=== PATIENT | female | born 1990 | race Caucasian/White ===

== ENCOUNTER 2016-06-04 18:10 | Emergency (ER) | payer OTHER, BC ==
[~2016-06-04] VITALS: Ht 157.4 cm; Wt 65.8 kg
[~2016-06-04 18:10] MED LIST: AMOXICILLIN500 M3 PO; BACTRIM DS 8001 TA1 PO; CETACAINE T; IBU800 M1 PO; PREDNISONE20 M1 PO; ZITHROMAX250 MG PO
[2016-06-04 18:37] LABS: BASO % 0.3 % (0.0-1.0); EOS # 0.1 10*3/uL (0.0-0.4); EOS % 0.5 % (1.0-4.0); HEMATOCRIT 45.2 % (37.0-47.0); HEMOGLOBIN 15.9 g/dl (12.0-16.0); IG # 0.1 10*3/uL (0.0-0.1); LYMPH # 2.6 10*3/uL (1.3-4.4); LYMPH % 17.1 % (27.0-41.0); MEAN CELL VOLUME 87.6 fl (81.0-99.0); MEAN CORPUSCULAR HGB 30.8 pg (27.0-31.0); MEAN CORPUSCULAR HGB CONC 35.2 g/dl (33.0-37.0); MEAN PLATELET VOLUME 9.1 fl (9.6-12.3); MONO # 0.7 10*3/uL (0.1-1.0); MONO % 4.5 % (3.0-9.0); NEUT # 11.9 10*3/uL (2.3-7.9); NEUT % 77.1 % (47.0-73.0); PLATELET COUNT AUTOMATED 276 10*3/uL (130-400); RED BLOOD COUNT 5.16 10*6/uL (4.10-5.10); WHITE BLOOD COUNT 15.4 10*3/uL (4.8-10.8)
[2016-06-04 18:59] LABS: ALBUMIN 4.4 gm/dl (3.1-4.5); ALKALINE PHOSPHATASE 75 U/L (45-117); BILIRUBIN, TOTAL 0.5 mg/dl (0.2-1.0); BUN 11 mg/dl (7-24); CARBON DIOXIDE 26 mmol/L (21-32); CHLORIDE 101 mmol/L (98-107); EST GLOM FILT AFRICAN AMERICAN > 60 ml/min; GLUCOSE 102 mg/dL (65-99); POTASSIUM 3.8 mmol/L (3.5-5.1); SGOT/AST 18 IU/L (3-35); SGPT/ALT 26 U/L (12-78); SODIUM 139 mmol/L (136-145); TOTAL PROTEIN 7.8 gm/dL (6.4-8.2)
[2016-06-04 19:09] LABS: TROPONIN I < 0.015 ng/ml (<0.045)
[2016-06-04] MEDS ORDERED: BLEPH-10 15 ML15 ML OPH (21:05)
== END 2016-06-04 21:33 | disposition home or self-care (01) ==
LOC: ED 18:10
PROVIDERS: Emergency Medicine
DX: S05.02XA Injury of conjunctiva and corneal abrasion without foreign body, left eye, initial encounter (principal); V89.2XXA Person injured in unspecified motor-vehicle accident, traffic, initial encounter; Y93.89 Activity, other specified; Y92.413 State road as the place of occurrence of the external cause; Y99.9 Unspecified external cause status

== ENCOUNTER 2016-12-09 17:08 | Emergency (ER) | payer BC ==
[~2016-12-09] VITALS: Ht 157.4 cm; Wt 71.7 kg
[~2016-12-09 17:08] MED LIST changes: +BLEPH-10 15 ML15 ML OPH
[2016-12-09] MEDS ORDERED: PENICILLIN VK500 MG PO (17:35)
[2016-12-09] MEDS ORDERED: Peridex 473 ML473 ML PO (17:35)
[2016-12-09] MEDS ORDERED: NAPROSYN500 MG PO (17:35)
== END 2016-12-09 22:22 | disposition home or self-care (01) ==
LOC: ED 17:08
DX: K02.9 Dental caries, unspecified (principal); F17.200 Nicotine dependence, unspecified, uncomplicated

== ENCOUNTER 2016-12-24 22:51 | Emergency (ER) | payer BC ==
[~2016-12-24] VITALS: Ht 157.4 cm; Wt 83.9 kg
[~2016-12-24 22:51] MED LIST changes: +NAPROSYN500 MG PO; +PENICILLIN VK500 MG PO; +Peridex 473 ML473 ML PO
[2016-12-24] MEDS ORDERED: CEPHALEXIN500 M1 PO (23:27)
== END 2016-12-24 23:38 | disposition home or self-care (01) ==
LOC: ED 22:51
DX: S80.811A Abrasion, right lower leg, initial encounter (principal); L03.115 Cellulitis of right lower limb; F17.200 Nicotine dependence, unspecified, uncomplicated; X58.XXXA Exposure to other specified factors, initial encounter; Y93.89 Activity, other specified; Y92.89 Other specified places as the place of occurrence of the external cause; Y99.9 Unspecified external cause status

== ENCOUNTER → 2016-12-25 | Outpatient (CLI) | payer BC ==
[~2016-12-25] MED LIST changes: +CEPHALEXIN500 M1 PO
== END | disposition home or self-care (01) ==
LOC: US 08:38
DX: M79.604 Pain in right leg (principal); R60.0 Localized edema

== ENCOUNTER 2017-05-05 16:44 | Emergency (ER) | payer BC ==
[~2017-05-05] VITALS: Ht 157.4 cm; Wt 83.9 kg
[2017-05-05 17:35] LABS: BASO % 0.2 % (0.0-1.0); HEMATOCRIT 45.4 % (37.0-47.0); LYMPH # 1.1 10*3/uL (1.3-4.4); LYMPH % 8.6 % (27.0-41.0); MEAN CELL VOLUME 85.5 fl (81.0-99.0); MEAN CORPUSCULAR HGB 30.1 pg (27.0-31.0); MEAN CORPUSCULAR HGB CONC 35.2 g/dl (33.0-37.0); MEAN PLATELET VOLUME 9.4 fl (9.6-12.3); MONO # 0.3 10*3/uL (0.1-1.0); NEUT # 11.5 10*3/uL (2.3-7.9); NEUT % 88.9 % (47.0-73.0); PLATELET COUNT AUTOMATED 251 10*3/uL (130-400); RED BLOOD COUNT 5.31 10*6/uL (4.10-5.10); RED CELL DISTRI WIDTH 12.4 % (0-14.5)
[2017-05-05 17:50] LABS: ALBUMIN 4.1 gm/dl (3.1-4.5); ALKALINE PHOSPHATASE 86 U/L (45-117); BUN 13 mg/dl (7-24); CHLORIDE 106 mmol/L (98-107); CREATININE 0.91 mg/dL (0.55-1.02); LIPASE 103 U/L (73-393); POTASSIUM 3.7 mmol/L (3.5-5.1); SGOT/AST 12 IU/L (3-35); SGPT/ALT 19 U/L (12-78); SODIUM 142 mmol/L (136-145)
[2017-05-05 18:15] LABS: BILIRUBIN 1+ (NEGATIVE); BLOOD NEGATIVE (NEGATIVE); CLARITY CLOUDY (CLEAR); COLOR YELLOW (YELLOW); GLUCOSE NEGATIVE (NEGATIVE); KETONE 2+ (NEGATIVE); LEUKO ESTERASE NEGATIVE (NEGATIVE); NITRITE NEGATIVE (NEGATIVE); SPECIFIC GRAVITY >= 1.030 (1.005-1.030); UROBILINOGEN 0.2 E.U./dl (0.2-1.0)
[2017-05-05 18:26] LABS: BACTERIA 1+; MUCOUS 2+
[2017-05-05] MEDS ORDERED: ZOFRAN ODT4 MG SL (21:01)
== END 2017-05-05 21:08 | disposition home or self-care (01) ==
LOC: ED 16:44
PROVIDERS: Physician Assistant
DX: A08.4 Viral intestinal infection, unspecified (principal); R11.2 Nausea with vomiting, unspecified; R10.13 Epigastric pain; F17.200 Nicotine dependence, unspecified, uncomplicated; Z79.899 Other long term (current) drug therapy

== ENCOUNTER 2017-07-13 19:55 | Emergency (ER) | payer BC ==
[~2017-07-13] VITALS: Ht 157.4 cm; Wt 83.9 kg
[~2017-07-13 19:55] MED LIST changes: +ZOFRAN ODT4 MG SL
[2017-07-13] MEDS ORDERED: AMOXICILLIN500 M2 PO (20:19)
== END 2017-07-13 20:38 | disposition home or self-care (01) ==
LOC: ED 19:55
DX: K08.89 Other specified disorders of teeth and supporting structures (principal); Z79.899 Other long term (current) drug therapy

== ENCOUNTER 2017-12-21 09:41 | Emergency (ER) | payer OTHER ==
[~2017-12-21] VITALS: Wt 83.9 kg
[~2017-12-21 09:41] MED LIST changes: +AMOXICILLIN500 M2 PO; +MACROBID100 M1 PO
[2017-12-21 09:57] LABS: BASO % 0.2 % (0.0-1.0); EOS # 0.1 10*3/uL (0.0-0.4); EOS % 1.2 % (1.0-4.0); HEMOGLOBIN 15.9 g/dl (12.0-16.0); LYMPH % 18.1 % (27.0-41.0); MEAN CORPUSCULAR HGB 30.4 pg (27.0-31.0); MEAN CORPUSCULAR HGB CONC 34.6 g/dl (33.0-37.0); MEAN PLATELET VOLUME 9.2 fl (9.6-12.3); MONO # 0.5 10*3/uL (0.1-1.0); MONO % 4.9 % (3.0-9.0); NEUT # 8.2 10*3/uL (2.3-7.9); NEUT % 75.2 % (47.0-73.0); PLATELET COUNT AUTOMATED 198 10*3/uL (130-400); RED BLOOD COUNT 5.23 10*6/uL (4.10-5.10); RED CELL DISTRI WIDTH 12.3 % (0-14.5); WHITE BLOOD COUNT 10.9 10*3/uL (4.8-10.8)
[2017-12-21 10:17] LABS: ALBUMIN 3.9 gm/dl (3.1-4.5); ALKALINE PHOSPHATASE 87 U/L (45-117); BUN 13 mg/dl (7-24); CHLORIDE 110 mmol/L (98-107); CREATININE 0.96 mg/dL (0.55-1.02); LIPASE 132 U/L (73-393); POTASSIUM 3.8 mmol/L (3.5-5.1); SGOT/AST 13 IU/L (3-35); SGPT/ALT 20 U/L (12-78); SODIUM 142 mmol/L (136-145); TOTAL PROTEIN 7.3 gm/dL (6.4-8.2)
[2017-12-21 10:57] LABS: CLARITY SL CLOUDY (CLEAR); COLOR YELLOW (YELLOW)
[2017-12-21 10:58] LABS: BILIRUBIN NEGATIVE (NEGATIVE); BLOOD NEGATIVE (NEGATIVE); GLUCOSE NEGATIVE (NEGATIVE); KETONE NEGATIVE (NEGATIVE); LEUKO ESTERASE NEGATIVE (NEGATIVE); NITRITE NEGATIVE (NEGATIVE); UROBILINOGEN 0.2 E.U./dl (0.2-1.0)
[2017-12-21 11:11] LABS: BACTERIA 1+; MUCOUS 2+; RBC 0-2 rbc/hpf (0-2)
[2017-12-21] MEDS ORDERED: ZOFRAN ODT4 MG SL (11:27)
[2017-12-29] MEDS ORDERED: PROTONIX40 M1 PO (17:41)
== END 2017-12-21 11:29 | disposition home or self-care (01) ==
LOC: ED 09:41
PROVIDERS: Emergency Medicine
DX: K52.9 Noninfective gastroenteritis and colitis, unspecified (principal); R11.2 Nausea with vomiting, unspecified; E66.9 Obesity, unspecified; F17.200 Nicotine dependence, unspecified, uncomplicated

== ENCOUNTER 2018-10-12 05:34 | Emergency (ER) | payer SELFPAY ==
[~2018-10-12] VITALS: Ht 165.1 cm; Wt 99.8 kg
[~2018-10-12 05:34] MED LIST changes: +DIFLUCAN150 MG PO; +IBU800 MG PO; +PROTONIX40 M1 PO
[2018-10-12] MEDS ORDERED: TYLENOL325 M1 PO (08:04)
[2018-10-12] MEDS ORDERED: ZOFRAN4 MG PO (08:04)
[2018-11-06] MEDS ORDERED: CLINDAMYCIN HC300 MG PO (18:29)
[2018-11-06] MEDS ORDERED: Motrin,Rufen800 MG PO (18:29)
== END 2018-10-12 08:20 | disposition home or self-care (01) ==
LOC: ED 05:34
DX: S06.0X0A Concussion without loss of consciousness, initial encounter (principal); S00.83XA Contusion of other part of head, initial encounter; R11.2 Nausea with vomiting, unspecified; Y08.89XA Assault by other specified means, initial encounter; Y93.89 Activity, other specified; Y92.098 Other place in other non-institutional residence as the place of occurrence of the external cause; Y99.8 Other external cause status

== ENCOUNTER 2018-12-03 01:56 | Emergency (ER) | payer SELFPAY ==
[~2018-12-03] VITALS: Ht 157.4 cm; Wt 81.6 kg
[~2018-12-03 01:56] MED LIST changes: +CLINDAMYCIN HC300 MG PO; +Motrin,Rufen800 MG PO; +TYLENOL325 M1 PO; +ZOFRAN4 MG PO
[2018-12-03] MEDS ORDERED: CLINDAMYCIN HC300 MG PO (03:05)
[2018-12-03] MEDS ORDERED: Motrin,Rufen800 MG PO (03:06)
== END 2018-12-03 03:37 | disposition home or self-care (01) ==
LOC: ED 01:56
DX: K02.9 Dental caries, unspecified (principal); K04.01 Reversible pulpitis; Z79.899 Other long term (current) drug therapy; Z79.2 Long term (current) use of antibiotics

== ENCOUNTER 2018-12-03 22:50 | Inpatient (IN) | payer SELFPAY ==
[~2018-12-03] VITALS: Ht 157.4 cm; Wt 88.7 kg
--- NOTE | ~2018-12-03 | WRIGHTHP ---
[place], [place] PATIENT HISTORY AND PHYSICAL EXAM NAME: CHARLA BECKER [facility] #: [id number] UNIT #: [id number] ROOM: [id number] DOCTOR: ROXI DIA MD BIRTHDATE: [birth year] DOS: 12/04/2018 HISTORY OF PRESENT ILLNESS: The patient is 27 years old. The patient had multiple visits to the ER with tooth problems. She came into the Emergency Room on 12/03/2018, was discharged on some pain medicines and then clindamycin, went home. Her mouth and her cheek and eye got increasingly swollen, she came back again. She has been admitted, but with some sitting in the holding area for more than 24 hours, she was just brought to the floor this morning at 9:00. She denies having any chest pains or palpitations, does not have any fever or chills. Had a root canal performed about 8 months ago by the dental clinic in [place]. She was eating a hard candy and the filling fell out and left with a gaping hole. The patient says that then she got an infection in there and it continued to get worse. She does not have any complaints of fever, does not have any abdominal pain, nausea, emesis. Does not have any chest pains or shortness of breath. Has significant pain in the right side of the face and wants to have more pain medications. PAST MEDICAL HISTORY: None significant except for the chronic tooth problems. SOCIAL HISTORY: Smoker of about half pack of cigarettes. Does not use any alcohol. 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 PHYSICAL EXAMINATION: GENERAL: She is awake and alert and oriented. VITAL SIGNS: Blood pressure is 131/85, pulse of 86, respirations 18, temperature 99.5. LUNGS: Diminished breath sounds. Clear. HEART: Regular. ABDOMEN: Obese. EXTREMITIES: Without any edema. SKIN: Right side of the face and eyes swollen and pretty tender to touch. LABORATORY DATA: White cell count is 12.3. Comprehensive within normal limits. ESR and CRP are normal. Maxillofacial CAT scan showed fluid collection in the right side of the maxilla arising in the right second upper molar with surrounding soft tissue swelling, erosion of the premolar. ASSESSMENT AND PLAN: Dental abscess with facial edema. The patient is placed on intravenous vancomycin and Zosyn, intravenous fluids and consultation with Dr. Edouard. Demerol for pain control. Right now, the patient will stay n.p.o. until seen by Dr. Nunn for possible procedures. [place], [place] PATIENT HISTORY AND PHYSICAL EXAM NAME: CHARLA BECKER UNIT #: [id number] ROOM: [facility] DOCTOR: ROXI DIA MD BIRTHDATE: [birth year] ROXI DIA MD CM:HISPHYS:PATIENT HISTORY AND PHYSICAL EXAMINATION 3 ROXI DIA MD 12/04/18 0945 interface
[2018-12-03 22:51] VITALS: BP 131/78
[2018-12-03 23:22] LABS: BASO % 0.2 % (0.0-1.0); EOS # 0.2 10*3/uL (0.0-0.4); EOS % 1.3 % (1.0-4.0); HEMOGLOBIN 13.5 g/dl (12.0-16.0); LYMPH # 2.1 10*3/uL (1.3-4.4); LYMPH % 17.2 % (27.0-41.0); MEAN CELL VOLUME 91.5 fl (81.0-99.0); MEAN CORPUSCULAR HGB 30.9 pg (27.0-31.0); MEAN CORPUSCULAR HGB CONC 33.8 g/dl (33.0-37.0); MEAN PLATELET VOLUME 9.6 fl (9.6-12.3); MONO # 0.9 10*3/uL (0.1-1.0); MONO % 7.2 % (3.0-9.0); NEUT # 9.1 10*3/uL (2.3-7.9); NEUT % 73.6 % (47.0-73.0); PLATELET COUNT AUTOMATED 205 10*3/uL (130-400); RED BLOOD COUNT 4.37 10*6/uL (4.10-5.10); RED CELL DISTRI WIDTH 12.8 % (0-14.5); WHITE BLOOD COUNT 12.3 10*3/uL (4.8-10.8)
[2018-12-03 23:38] LABS: ALBUMIN 3.6 gm/dl (3.1-4.5); ALKALINE PHOSPHATASE 79 U/L (45-117); BUN 9 mg/dl (7-24); CHLORIDE 109 mmol/L (98-107); CREATININE 0.77 mg/dL (0.55-1.02); POTASSIUM 3.8 mmol/L (3.5-5.1); SGOT/AST 9 IU/L (3-35); SGPT/ALT 22 U/L (12-78); SODIUM 138 mmol/L (136-145); TOTAL PROTEIN 6.8 gm/dL (6.4-8.2)
--- NOTE | 2018-12-04 03:29 | NUR ---
PATIENT RESTING QUIETLY IN BED AT THIS TIME. RESPIRATIONS EASY, NON-LABORED ON ROOM AIR. NO DISTRESS NOTED. CALL LIGHT WITHIN REACH. RN WILL CONTINUE TO MONITOR.
[2018-12-04 07:23] VITALS: BP 129/90
--- NOTE | 2018-12-04 07:24 | NUR ---
REPORT RECIEVED AT 0710 FROM CHRIS MACK. AWAKE AND ALERT. PT REPORTS HER PAIN TO BE A 8-9/10. LARGE EDEMA NOTED ON RIGHT SIDE OF FACE AND RIGHT ORBITAL AREA. COLOR IS PINK. SKIN IS WARM AND DRY. RESPIRATIONS ARE NON LABORED. PULSE OX AT 99%
[2018-12-04 08:00] VITALS: BP 131/85
--- NOTE | 2018-12-04 08:30 | NUR ---
Time: 829 A 27 year old FEMALE admitted to under services of ROXI PALACIOS MD. Pt. arrived via bed from ER. Chief complaint: RIGHT SIDED FACIAL SWELLING, DENTAL ABSCESS. SALVADOR DE
--- NOTE | 2018-12-04 10:07 | NUR ---
PTS MOTHER TO THE DESK AND WANTS PATIENT DISCHARGED. DR. DIA NOTIFIED AND GAVE ORDER. HEPLOCK DISCONTINUED. PT DENIED NEED FOR WHEELCHAIR AND AMBULATED OFF THE FLOOR.
== END 2018-12-04 10:07 | disposition home or self-care (01) | DRG 159 ==
LOC: ED 22:50 → EDHOLD 12-04 01:21 → 4E 12-04 07:34
PROVIDERS: Nurse Practitioner Family; ADMIT Internal Medicine
DX: K04.7 Periapical abscess without sinus (principal); F17.210 Nicotine dependence, cigarettes, uncomplicated

== ENCOUNTER 2019-04-08 22:13 | Emergency (ER) | payer SELFPAY ==
[~2019-04-08] VITALS: Wt 70.3 kg
[2019-04-08 22:59] LABS: BASO % 0.4 % (0.0-1.0); EOS # 0.2 10*3/uL (0.0-0.4); EOS % 1.4 % (1.0-4.0); HEMATOCRIT 40.4 % (37.0-47.0); HEMOGLOBIN 13.4 g/dl (12.0-16.0); LYMPH # 2.5 10*3/uL (1.3-4.4); LYMPH % 23.7 % (27.0-41.0); MEAN CELL VOLUME 89.4 fl (81.0-99.0); MEAN CORPUSCULAR HGB 29.6 pg (27.0-31.0); MEAN CORPUSCULAR HGB CONC 33.2 g/dl (33.0-37.0); MEAN PLATELET VOLUME 9.3 fl (9.6-12.3); MONO # 0.6 10*3/uL (0.1-1.0); MONO % 5.9 % (3.0-9.0); NEUT # 7.2 10*3/uL (2.3-7.9); NEUT % 68.2 % (47.0-73.0); PLATELET COUNT AUTOMATED 231 10*3/uL (130-400); RED BLOOD COUNT 4.52 10*6/uL (4.10-5.10); RED CELL DISTRI WIDTH 12.5 % (0-14.5); WHITE BLOOD COUNT 10.5 10*3/uL (4.8-10.8)
[2019-04-08 23:14] LABS: ALBUMIN 3.7 gm/dl (3.1-4.5); ALKALINE PHOSPHATASE 76 U/L (45-117); BUN 16 mg/dl (7-24); CHLORIDE 113 mmol/L (98-107); CREATININE 0.84 mg/dL (0.55-1.02); POTASSIUM 3.8 mmol/L (3.5-5.1); SGOT/AST 5 IU/L (3-35); SGPT/ALT 19 U/L (12-78); SODIUM 141 mmol/L (136-145); TOTAL PROTEIN 7.1 gm/dL (6.4-8.2)
[2019-04-08 23:45] LABS: BILIRUBIN NEGATIVE (NEGATIVE); BLOOD NEGATIVE (NEGATIVE); CLARITY CLEAR (CLEAR); COLOR YELLOW (YELLOW); GLUCOSE NEGATIVE (NEGATIVE); KETONE NEGATIVE (NEGATIVE); LEUKO ESTERASE TRACE (NEGATIVE); NITRITE NEGATIVE (NEGATIVE); PH 5.5 (5.0-9.0); SPECIFIC GRAVITY >= 1.030 (1.005-1.030); UROBILINOGEN 0.2 E.U./dl (0.2-1.0)
[2019-04-09 00:04] LABS: BACTERIA 1+
== END 2019-04-09 08:18 | disposition short-term general hospital (02) ==
LOC: ED 22:13
PROVIDERS: Emergency Medicine
DX: N76.4 Abscess of vulva (principal); L73.9 Follicular disorder, unspecified; Z20.2 Contact with and (suspected) exposure to infections with a predominantly sexual mode of transmission

== ENCOUNTER 2019-06-25 19:50 | Inpatient (IN) | payer OTHER ==
[~2019-06-25] VITALS: Ht 157.4 cm; Wt 83.2 kg
[2019-06-25 20:02] VITALS: BP 144/83
[2019-06-25] MEDS ORDERED: VALTREX1000 MG (20:38)
[2019-06-25 20:41] LABS: BASO % 0.2 % (0.0-1.0); HEMATOCRIT 48.6 % (37.0-47.0); HEMOGLOBIN 17.1 g/dl (12.0-16.0); LYMPH # 1.4 10*3/uL (1.3-4.4); LYMPH % 7.8 % (27.0-41.0); MEAN CELL VOLUME 85.6 fl (81.0-99.0); MEAN CORPUSCULAR HGB 30.1 pg (27.0-31.0); MEAN CORPUSCULAR HGB CONC 35.2 g/dl (33.0-37.0); MEAN PLATELET VOLUME 9.6 fl (9.6-12.3); MONO # 0.5 10*3/uL (0.1-1.0); MONO % 2.9 % (3.0-9.0); NEUT # 16.3 10*3/uL (2.3-7.9); NEUT % 88.7 % (47.0-73.0); PLATELET COUNT AUTOMATED 312 10*3/uL (130-400); RED BLOOD COUNT 5.68 10*6/uL (4.10-5.10); RED CELL DISTRI WIDTH 12.6 % (0-14.5); WHITE BLOOD COUNT 18.4 10*3/uL (4.8-10.8)
[2019-06-25 20:58] LABS: ALBUMIN 4.6 gm/dl (3.1-4.5); ALKALINE PHOSPHATASE 92 U/L (45-117); BUN 19 mg/dl (7-24); CHLORIDE 101 mmol/L (98-107); CREATININE 1.13 mg/dL (0.55-1.02); POTASSIUM 3.1 mmol/L (3.5-5.1); SGOT/AST 11 IU/L (3-35); SGPT/ALT 19 U/L (12-78); SODIUM 135 mmol/L (136-145); TOTAL PROTEIN 9.2 gm/dL (6.4-8.2)
[2019-06-25 20:59] LABS: LIPASE 49 U/L (73-393)
[2019-06-25 21:02] LABS: BETA-HCG, QUANT < 1.0 mIU/mL (1-3)
[2019-06-25 21:37] LABS: BILIRUBIN 1+ (NEGATIVE); BLOOD TRACE-INTACT (NEGATIVE); CLARITY SL CLOUDY (CLEAR); COLOR YELLOW (YELLOW); GLUCOSE NEGATIVE (NEGATIVE); KETONE 2+ (NEGATIVE); LEUKO ESTERASE NEGATIVE (NEGATIVE); NITRITE NEGATIVE (NEGATIVE); UROBILINOGEN 0.2 E.U./dl (0.2-1.0)
[2019-06-25 21:38] LABS: BACTERIA 1+; EPITHELIAL CELLS TNTC; HYALINE CAST TNTC; WBC 0-2 wbc/hpf (0-5)
[2019-06-25 21:39] LABS: MUCOUS 3+
[2019-06-25 23:47] VITALS: BP 110/64
[2019-06-26] VITALS (11 sets, daily range): BP systolic 87–144; BP diastolic 37–98
[2019-06-26 05:48] LABS: BUN 14 mg/dl (7-24); CHLORIDE 103 mmol/L (98-107); CREATININE 0.75 mg/dL (0.55-1.02); POTASSIUM 2.9 mmol/L (3.5-5.1); SODIUM 137 mmol/L (136-145)
[2019-06-26 06:20] LABS: BASO % 0.2 % (0.0-1.0); EOS % 0.1 % (1.0-4.0); HEMATOCRIT 41.4 % (37.0-47.0); HEMOGLOBIN 14.3 g/dl (12.0-16.0); LYMPH # 2.6 10*3/uL (1.3-4.4); LYMPH % 15.9 % (27.0-41.0); MEAN CELL VOLUME 86.8 fl (81.0-99.0); MEAN CORPUSCULAR HGB CONC 34.5 g/dl (33.0-37.0); MEAN PLATELET VOLUME 10.2 fl (9.6-12.3); MONO # 1.2 10*3/uL (0.1-1.0); MONO % 7.3 % (3.0-9.0); NEUT # 12.4 10*3/uL (2.3-7.9); PLATELET COUNT AUTOMATED 281 10*3/uL (130-400); RED BLOOD COUNT 4.77 10*6/uL (4.10-5.10); RED CELL DISTRI WIDTH 12.4 % (0-14.5); WHITE BLOOD COUNT 16.3 10*3/uL (4.8-10.8)
[2019-06-26] MEDS ORDERED: ZOFRAN4 MG PO (14:25)
== END 2019-06-26 23:58 | disposition home or self-care (01) | DRG 710 ==
LOC: ED 19:50 → EDHOLD 06-26 01:37 → 4E 06-26 01:37
PROVIDERS: Family Medicine; Internal Medicine; ADMIT Internal Medicine
PROC: 0DTJ4ZZ Resection of Appendix, Percutaneous Endoscopic Approach (ICD-10-PCS; principal; 2019-06-26)
DX: A41.9 Sepsis, unspecified organism (principal); K35.80 Unspecified acute appendicitis; N17.0 Acute kidney failure with tubular necrosis; E87.1 Hypo-osmolality and hyponatremia; E87.6 Hypokalemia; R65.20 Severe sepsis without septic shock; Z79.899 Other long term (current) drug therapy; Z83.79 Family history of other diseases of the digestive system

== ENCOUNTER 2019-08-10 21:45 | Emergency (ER) | payer OTHER ==
[~2019-08-10] VITALS: Ht 157.4 cm; Wt 81.6 kg
[~2019-08-10 21:45] MED LIST changes: +VALTREX1000 MG
== END 2019-08-10 23:20 | disposition home or self-care (01) ==
LOC: ED 21:45
DX: G56.00 Carpal tunnel syndrome, unspecified upper limb (principal); Z79.899 Other long term (current) drug therapy

== ENCOUNTER 2019-10-21 17:25 | Inpatient (IN) | payer OTHER ==
[~2019-10-21] VITALS: Ht 157.5 cm; Wt 83.9 kg
[2019-10-21 17:32] VITALS: BP 136/103
[2019-10-21 17:45] VITALS: BP 130/86
[2019-10-21 17:53] LABS: BILIRUBIN 1+ (NEGATIVE); BLOOD 3+ (NEGATIVE); CLARITY CLOUDY (CLEAR); COLOR STRAW (YELLOW); GLUCOSE NEGATIVE (NEGATIVE); KETONE 3+ (NEGATIVE); LEUKO ESTERASE NEGATIVE (NEGATIVE); NITRITE NEGATIVE (NEGATIVE); UROBILINOGEN 0.2 E.U./dl (0.2-1.0)
[2019-10-21 17:59] LABS: RBC 0-2 rbc/hpf (0-2)
[2019-10-21 18:00] LABS: BACTERIA 1+; MUCOUS 1+
[2019-10-21 18:02] LABS: URINE AMPHETAMINES > 1000 (1000ng/ml); URINE BARBITURATES < 200 (200ng/ml); URINE BENZODIAZEPINES > 200 (200ng/ml); URINE CANNABINOIDS (THC) > 50 (50ng/ml); URINE COCAINE < 300 (300ng/ml); URINE METHADONE < 300 (300ng/ml); URINE OPIATES < 300 (300ng/ml); URINE PHENCYCLIDINE < 25 (25ng/ml)
[2019-10-21 18:02] LABS: BASO # 0.1 10*3/uL (0.0-0.1); BASO % 0.2 % (0.0-1.0); EOS % 0.2 % (1.0-4.0); HEMATOCRIT 51.7 % (37.0-47.0); LYMPH # 1.3 10*3/uL (1.3-4.4); LYMPH % 6.7 % (27.0-41.0); MEAN CELL VOLUME 87.3 fl (81.0-99.0); MEAN CORPUSCULAR HGB 30.2 pg (27.0-31.0); MEAN CORPUSCULAR HGB CONC 34.6 g/dl (33.0-37.0); MEAN PLATELET VOLUME 9.5 fl (9.6-12.3); MONO # 0.7 10*3/uL (0.1-1.0); MONO % 3.3 % (3.0-9.0); NEUT # 17.9 10*3/uL (2.3-7.9); NEUT % 89.2 % (47.0-73.0); PLATELET COUNT AUTOMATED 333 10*3/uL (130-400); RED BLOOD COUNT 5.92 10*6/uL (4.10-5.10); RED CELL DISTRI WIDTH 12.5 % (0-14.5); WHITE BLOOD COUNT 20.1 10*3/uL (4.8-10.8)
[2019-10-21 18:17] LABS: ALBUMIN 4.8 gm/dl (3.1-4.5); ALKALINE PHOSPHATASE 100 U/L (45-117); BUN 12 mg/dl (7-24); CHLORIDE 104 mmol/L (98-107); CREATININE 0.97 mg/dL (0.55-1.02); POTASSIUM 3.9 mmol/L (3.5-5.1); SGOT/AST 19 IU/L (3-35); SGPT/ALT 40 U/L (12-78); SODIUM 138 mmol/L (136-145); TOTAL PROTEIN 9.3 gm/dL (6.4-8.2)
[2019-10-21 20:11] VITALS: BP 126/83
[2019-10-21 21:20] VITALS: BP 124/75
[2019-10-22] VITALS: BP 129/78
[2019-10-22 06:27] LABS: HEMATOCRIT 46.5 % (37.0-47.0); MEAN CELL VOLUME 89.1 fl (81.0-99.0); MEAN CORPUSCULAR HGB 30.5 pg (27.0-31.0); MEAN CORPUSCULAR HGB CONC 34.2 g/dl (33.0-37.0); MEAN PLATELET VOLUME 9.6 fl (9.6-12.3); PLATELET COUNT AUTOMATED 293 10*3/uL (130-400); RED BLOOD COUNT 5.22 10*6/uL (4.10-5.10); RED CELL DISTRI WIDTH 12.7 % (0-14.5); WHITE BLOOD COUNT 16.3 10*3/uL (4.8-10.8)
[2019-10-22 06:57] LABS: ALBUMIN 4.3 gm/dl (3.1-4.5); ALKALINE PHOSPHATASE 85 U/L (45-117); BUN 12 mg/dl (7-24); CHLORIDE 105 mmol/L (98-107); CREATININE 0.85 mg/dL (0.55-1.02); HDL CHOLESTEROL 50 mg/dl (40-60); POTASSIUM 3.5 mmol/L (3.5-5.1); SGOT/AST 10 IU/L (3-35); SGPT/ALT 33 U/L (12-78); SODIUM 138 mmol/L (136-145); TOTAL PROTEIN 8.5 gm/dL (6.4-8.2); TRIGLYCERIDES 55 mg/dl (<150); VLDL CHOLESTEROL 11 mg/dL (6-40)
[2019-10-22 07:02] LABS: CHOLESTEROL 128 mg/dL (<200); LDL CHOLESTEROL 67 mg/dL (9-159); THYROID STIM HORMONE (HS) 0.407 uIU/ml (0.358-4.75)
[2019-10-22 07:19] LABS: PLATELET SUFFICIENCY NORMAL (NORMAL); TOTAL CELLS COUNTED 100 #CELLS
[2019-10-22 08:09] LABS: VITAMIN D, 25-HYDROXY 26.7 ng/mL (30-100)
[2019-10-22 12:00] VITALS: BP 136/71
[2019-10-22 16:00] VITALS: BP 124/77
[2019-10-22 20:00] VITALS: BP 130/70
[2019-10-23] VITALS: BP 134/88
[2019-10-23 06:48] LABS: BASO % 0.1 % (0.0-1.0); EOS % 0.1 % (1.0-4.0); HEMATOCRIT 42.3 % (37.0-47.0); LYMPH # 2.4 10*3/uL (1.3-4.4); LYMPH % 17.2 % (27.0-41.0); MEAN CELL VOLUME 88.9 fl (81.0-99.0); MEAN CORPUSCULAR HGB 30.3 pg (27.0-31.0); MEAN PLATELET VOLUME 9.8 fl (9.6-12.3); MONO # 0.8 10*3/uL (0.1-1.0); NEUT # 10.7 10*3/uL (2.3-7.9); PLATELET COUNT AUTOMATED 269 10*3/uL (130-400); RED BLOOD COUNT 4.76 10*6/uL (4.10-5.10); RED CELL DISTRI WIDTH 12.4 % (0-14.5)
[2019-10-23 07:22] LABS: BUN 9 mg/dl (7-24); CHLORIDE 105 mmol/L (98-107); POTASSIUM 3.2 mmol/L (3.5-5.1); SODIUM 138 mmol/L (136-145)
[2019-10-23 08:00] VITALS: BP 126/76
[2019-10-23] MEDS ORDERED: VITAMIN D350 MC2 PO (11:24)
[2019-10-23] MEDS ORDERED: CIPRO500 MG PO (11:24)
[2019-10-23] MEDS ORDERED: FLAGYL500 MG PO (11:24)
== END 2019-10-23 11:52 | disposition home or self-care (01) | DRG 720 ==
LOC: ED 17:25 → EDHOLD 20:28 → 5E 20:28
PROVIDERS: Family Medicine; Internal Medicine; Nurse Practitioner; ADMIT Internal Medicine
DX: A41.9 Sepsis, unspecified organism (principal); R65.20 Severe sepsis without septic shock; F14.10 Cocaine abuse, uncomplicated; E83.41 Hypermagnesemia; F17.210 Nicotine dependence, cigarettes, uncomplicated; K52.9 Noninfective gastroenteritis and colitis, unspecified; D75.1 Secondary polycythemia; N12 Tubulo-interstitial nephritis, not specified as acute or chronic; R73.9 Hyperglycemia, unspecified; F15.10 Other stimulant abuse, uncomplicated; F12.10 Cannabis abuse, uncomplicated; F13.10 Sedative, hypnotic or anxiolytic abuse, uncomplicated; Z83.79 Family history of other diseases of the digestive system; Z84.89 Family history of other specified conditions; Z71.6 Tobacco abuse counseling

== ENCOUNTER 2019-12-16 07:02 | Emergency (ER) | payer OTHER ==
[~2019-12-16] VITALS: Ht 157.4 cm; Wt 81.6 kg
[~2019-12-16 07:02] MED LIST changes: +CIPRO500 MG PO; +FLAGYL500 MG PO; +VITAMIN D350 MC2 PO
[2019-12-16 07:42] LABS: BASO % 0.2 % (0.0-1.0); EOS # 0.1 10*3/uL (0.0-0.4); EOS % 0.5 % (1.0-4.0); HEMATOCRIT 47.7 % (37.0-47.0); LYMPH # 1.7 10*3/uL (1.3-4.4); LYMPH % 13.2 % (27.0-41.0); MEAN CELL VOLUME 89.2 fl (81.0-99.0); MEAN CORPUSCULAR HGB 29.5 pg (27.0-31.0); MEAN CORPUSCULAR HGB CONC 33.1 g/dl (33.0-37.0); MEAN PLATELET VOLUME 9.7 fl (9.6-12.3); MONO # 0.4 10*3/uL (0.1-1.0); NEUT # 10.9 10*3/uL (2.3-7.9); NEUT % 82.6 % (47.0-73.0); PLATELET COUNT AUTOMATED 274 10*3/uL (130-400); RED BLOOD COUNT 5.35 10*6/uL (4.10-5.10); WHITE BLOOD COUNT 13.1 10*3/uL (4.8-10.8)
[2019-12-16 07:46] LABS: BILIRUBIN Negative; CLARITY Turbid (CLEAR); COLOR Yellow (YELLOW); GLUCOSE Negative; KETONE Negative
[2019-12-16 07:47] LABS: BLOOD Negative (NEGATIVE); NITRITE Negative (NEGATIVE); SPECIFIC GRAVITY 1.025 (1.001-1.030); UROBILINOGEN 0.2 E.U./dl (0.0-1.0)
[2019-12-16 07:52] LABS: EPITHELIAL CELLS 16-20
[2019-12-16 07:53] LABS: BACTERIA 3+; COARSE GRANULAR CAST 21-30; LEUKO ESTERASE Negative (NEGATIVE)
[2019-12-16 07:58] LABS: ALBUMIN 4.5 gm/dl (3.1-4.5); ALKALINE PHOSPHATASE 71 U/L (45-117); BUN 16 mg/dl (7-24); CHLORIDE 109 mmol/L (98-107); CREATININE 0.84 mg/dL (0.55-1.02); POTASSIUM 3.8 mmol/L (3.5-5.1); SGOT/AST 12 IU/L (3-35); SGPT/ALT 16 U/L (12-78); SODIUM 141 mmol/L (136-145); TOTAL PROTEIN 8.2 gm/dL (6.4-8.2)
[2019-12-16] MEDS ORDERED: ZOFRAN4 MG PO (08:41)
[2019-12-16] MEDS ORDERED: IMODIUM A-D2 M2 PO (08:41)
== END 2019-12-16 08:43 | disposition home or self-care (01) ==
LOC: ED 07:02
PROVIDERS: Emergency Medicine
DX: N39.0 Urinary tract infection, site not specified (principal); K29.70 Gastritis, unspecified, without bleeding; Z79.899 Other long term (current) drug therapy

== ENCOUNTER 2022-11-08 18:45 | Emergency (ER) | payer OTHER ==
[~2022-11-08] VITALS: Ht 157.4 cm; Wt 77.1 kg
[~2022-11-08 18:45] MED LIST changes: +IMODIUM A-D2 M2 PO
[2022-11-08 20:13] LABS: BASO % 0.1 % (0.0-1.0); EOS % 0.1 % (1.0-4.0); HEMATOCRIT 46.3 % (37.0-47.0); LYMPH # 2.4 10*3/uL (1.3-4.4); LYMPH % 17.5 % (27.0-41.0); MEAN CELL VOLUME 88.2 fl (81.0-99.0); MEAN CORPUSCULAR HGB 30.3 pg (27.0-31.0); MEAN CORPUSCULAR HGB CONC 34.3 g/dl (33.0-37.0); MEAN PLATELET VOLUME 9.3 fl (9.6-12.3); MONO # 0.9 10*3/uL (0.1-1.0); MONO % 6.6 % (3.0-9.0); NEUT # 10.1 10*3/uL (2.3-7.9); NEUT % 75.3 % (47.0-73.0); PLATELET COUNT AUTOMATED 293 10*3/uL (130-400); RED BLOOD COUNT 5.25 10*6/uL (4.10-5.10); RED CELL DISTRI WIDTH 12.6 % (0-14.5); WHITE BLOOD COUNT 13.4 10*3/uL (4.8-10.8)
[2022-11-08 20:40] LABS: ALKALINE PHOSPHATASE 75 U/L (46-116); BUN 12 mg/dl (9-23); CHLORIDE 104 mmol/L (98-107); LIPASE 28 U/L (12-53); POTASSIUM 3.2 mmol/L (3.4-5.1); SGPT/ALT 12 U/L (10-49); TOTAL PROTEIN 7.9 gm/dL (6.0-8.0)
[2022-11-08 21:10] LABS: BILIRUBIN Negative (Negative); BLOOD Negative (Negative); CLARITY Cloudy (Clear); COLOR Yellow (Yellow); GLUCOSE Negative (Negative); KETONE Negative (Negative); LEUKO ESTERASE Negative (Negative); NITRITE Negative (Negative); SPECIFIC GRAVITY >= 1.030 (1.001-1.030)
[2022-11-08 21:19] LABS: BACTERIA 1+; MUCOUS 2+
[2022-11-08] MEDS ORDERED: PHENERGAN25 M3 PO (22:05)
== END 2022-11-08 22:37 | disposition home or self-care (01) ==
LOC: ED 18:45
PROVIDERS: Nurse Practitioner Family
DX: A08.4 Viral intestinal infection, unspecified (principal); F17.200 Nicotine dependence, unspecified, uncomplicated; F12.10 Cannabis abuse, uncomplicated; F10.10 Alcohol abuse, uncomplicated

== ENCOUNTER 2023-01-03 14:28 | Emergency (ER) | payer OTHER ==
[~2023-01-03] VITALS: Ht 157.4 cm; Wt 81.6 kg
[~2023-01-03 14:28] MED LIST changes: +PHENERGAN25 M3 PO
[2023-01-03 15:30] LABS: BASO % 0.2 % (0.0-1.0); EOS % 0.1 % (1.0-4.0); HEMATOCRIT 43.9 % (37.0-47.0); LYMPH # 1.2 10*3/uL (1.3-4.4); LYMPH % 7.9 % (27.0-41.0); MEAN CELL VOLUME 87.6 fl (81.0-99.0); MEAN CORPUSCULAR HGB 31.3 pg (27.0-31.0); MEAN CORPUSCULAR HGB CONC 35.8 g/dl (33.0-37.0); MEAN PLATELET VOLUME 9.7 fl (9.6-12.3); MONO # 0.4 10*3/uL (0.1-1.0); MONO % 2.4 % (3.0-9.0); NEUT # 13.7 10*3/uL (2.3-7.9); PLATELET COUNT AUTOMATED 264 10*3/uL (130-400); RED BLOOD COUNT 5.01 10*6/uL (4.10-5.10); RED CELL DISTRI WIDTH 12.8 % (0-14.5); WHITE BLOOD COUNT 15.3 10*3/uL (4.8-10.8)
[2023-01-03 16:08] LABS: ALKALINE PHOSPHATASE 69 U/L (46-116); BUN 11 mg/dl (9-23); CHLORIDE 108 mmol/L (98-107); POTASSIUM 3.8 mmol/L (3.4-5.1); SGPT/ALT 10 U/L (10-49); TOTAL PROTEIN 7.7 gm/dL (6.0-8.0)
[2023-01-03] MEDS ORDERED: ONDANSETRON4 MG SL (18:05)
== END 2023-01-03 17:35 | disposition home or self-care (01) ==
LOC: ED 14:28
PROVIDERS: Internal Medicine
DX: K29.70 Gastritis, unspecified, without bleeding (principal); R11.2 Nausea with vomiting, unspecified; R19.7 Diarrhea, unspecified; F10.10 Alcohol abuse, uncomplicated; F12.90 Cannabis use, unspecified, uncomplicated; F17.200 Nicotine dependence, unspecified, uncomplicated

== ENCOUNTER 2025-01-29 11:07 | Emergency (ER) | payer SELFPAY ==
[~2025-01-29] VITALS: Ht 157.4 cm; Wt 78.0 kg
[~2025-01-29 11:07] MED LIST changes: +ONDANSETRON4 MG SL
[2025-01-29] MEDS ORDERED: SEPTDS PO (11:47)
== END 2025-01-29 11:58 | disposition home or self-care (01) ==
LOC: ED 11:07
DX: L02.213 Cutaneous abscess of chest wall (principal); L02.416 Cutaneous abscess of left lower limb; L02.415 Cutaneous abscess of right lower limb; L02.211 Cutaneous abscess of abdominal wall; F17.210 Nicotine dependence, cigarettes, uncomplicated; Z90.49 Acquired absence of other specified parts of digestive tract